=== PATIENT | female | born 1960 | race Two or more races ===

== ENCOUNTER 2018-10-20 11:22 | Outpatient (CLI) | payer OTHER | END 2018-10-20 12:00 | disposition home or self-care (01) | LOC: NUCLEAR 11:22 | DX: M81.0 Age-related osteoporosis without current pathological fracture (principal) ==

== ENCOUNTER → 2018-10-20 | Outpatient (CLI) | payer OTHER ==
[~2018-10-20] MED LIST: SYNTHROID75 MCG PO
== END | disposition home or self-care (01) ==
LOC: RAD 501 10:31
DX: M25.562 Pain in left knee (principal); M25.561 Pain in right knee

== ENCOUNTER 2019-11-18 11:04 | Outpatient (CLI) | payer OTHER | END 2019-11-18 11:14 | disposition home or self-care (01) | LOC: RAD 11:04 | DX: R07.89 Other chest pain (principal) ==

== ENCOUNTER 2024-11-18 07:01 | Outpatient (CLI) | payer OTHER | END 2024-11-18 07:04 | disposition home or self-care (01) | LOC: MAMO-SONO 07:01 | PROVIDERS: ATTEND Specialist | DX: N60.11 Diffuse cystic mastopathy of right breast (principal); N60.12 Diffuse cystic mastopathy of left breast; R92.8 Other abnormal and inconclusive findings on diagnostic imaging of breast ==

== ENCOUNTER 2025-06-01 15:27 | Outpatient (CLI) | payer OTHER | END 2025-06-01 15:28 | disposition home or self-care (01) | LOC: SONOGRAMA 15:27 | DX: K74.00 Hepatic fibrosis, unspecified (principal) ==